=== PATIENT | male | born 2000 | race Caucasian/White ===

== ENCOUNTER 2018-10-23 00:12 | Emergency (ER) | payer OTHER ==
[2018-10-23] MEDS ORDERED: SKIN ADHESIVE (DERMABOND) 1 EACH TP ONE (01:05)
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
[2018-10-23 01:40] VITALS: BP 128/95
== END 2018-10-23 01:38 | disposition home or self-care (01) ==
PROC: 0CQ0XZZ Repair Upper Lip, External Approach (ICD-10-PCS; principal; 2018-10-23)
DX: S01.511A Laceration without foreign body of lip, initial encounter (principal); F17.200 Nicotine dependence, unspecified, uncomplicated; Y04.8XXA Assault by other bodily force, initial encounter; Y92.9 Unspecified place or not applicable; Y93.9 Activity, unspecified; Y99.9 Unspecified external cause status; Z88.0 Allergy status to penicillin